=== PATIENT | female | born 1950 | race Caucasian/White ===

== ENCOUNTER → 2021-10-02 | Outpatient (CLI) | payer OTHER | LOC: EXRD 13:00 | DX: N18.2 Chronic kidney disease, stage 2 (mild) (principal) | CPT/HCPCS: 76775 ==

== ENCOUNTER → 2022-04-04 | Outpatient (CLI) | payer OTHER ==
[2022-04-04 11:54] LABS: BUN/CREATININE RATIO 17 (0-10)
== END ==
LOC: LAB 10:38
PROVIDERS: Internal Medicine Nephrology
DX: N18.2 Chronic kidney disease, stage 2 (mild) (principal); R31.9 Hematuria, unspecified
CPT/HCPCS: 36415; 80053; 81001; 82570; 84156